=== PATIENT | female | born 1960 | race Caucasian/White ===

== ENCOUNTER 2018-05-28 08:52 | Outpatient (CLI) | payer BC ==
--- NOTE | 2018-05-29 09:05 | RAD ---
MODIFIED BARIUM SWALLOW WITH SPEECH THERAPIST: COMPARISON: None. HISTORY: Dysphagia oral phase, dysphagia unspecified, gastroesophageal reflux disease with esophagitis. FINDINGS/IMPRESSION: A modified barium swallow was performed by the speech therapist. No aspiration or penetration was se en during the examination. Please see dedicated speech therapy report for specific findings and giovanny mmendations. POS: [id number]
== END 2018-05-28 08:53 | disposition home or self-care (01) ==
PROVIDERS: ATTEND Otolaryngology Plastic Surgery within the Head & Neck
DX: R13.11 Dysphagia, oral phase (principal); K21.9 Gastro-esophageal reflux disease without esophagitis; G47.9 Sleep disorder, unspecified; R05 Cough; R06.83 Snoring
CPT/HCPCS: 74230; G8996-GN-CI; G8997-GN-CI; G8998-GN-CI

== ENCOUNTER 2021-08-16 09:15 | Outpatient (CLI) | payer BC | END 2021-08-16 09:16 | disposition home or self-care (01) | LOC: BICRAD 09:15 | PROVIDERS: ATTEND Physician Assistant Medical | DX: K21.9 Gastro-esophageal reflux disease without esophagitis (principal); R05.3 Chronic cough; Z86.010 Personal history of colon polyps | CPT/HCPCS: 71046 ==